=== PATIENT | female | born 1945 | race Caucasian/White ===

== ENCOUNTER 2017-04-25 11:35 | Outpatient (CLI) | payer MEDICARE, MEDICAID | END 2017-04-25 11:36 | disposition critical access hospital (66) | LOC: EMS 11:35 | PROVIDERS: ATTEND Surgery | DX: R10.9 Unspecified abdominal pain (principal) | CPT/HCPCS: A0425; A0427 ==

== ENCOUNTER 2017-04-25 11:54 | Observation (INO) | payer MEDICARE, MEDICAID ==
--- NOTE | 2017-04-25 12:21 | ED Physician Documentation ---
History of Present Illness - Stated complaint Stated Complaint: ABD PX - Chief complaint Chief Complaint: Abd Pain - History obtained from History obtained from: Patient, EMS - History of Present Illness Timing: Other (months) Pain level max: 3 Pain level now: 3 Improved by: nothing Worsened by: lying flat - Additonal information Additional information: Patient is a 71 year old female with diarrhea for the past 10 months. She now complains of abdominal swelling for the past 3-4 months. States felt short of breath today. Has a long history of etoh use, states now only drinks "1 drink per day". She has not seen a doctor for several years. [facility] was told she has diabetes approx 3-4 years ago, but "they never did anything". Smokes approx 1ppd. No fevers. No cough. No blood in the stool. no vomit. Review of Systems Ten Systems: 10 systems reviewed and negative Constitutional: denies: Fever, Chills Ears: denies: Ear pain Nose: denies: Rhinorrhea / runny nose, Congestion Throat: denies: Sore throat Cardiac: denies: Chest pain / pressure Respiratory: denies: Cough GI: reports: Diarrhea (10 times per day). denies: Nausea, Vomiting : denies: Dysuria Skin: denies: Rash Musculoskeletal: denies: Neck pain, Back pain Neurologic: denies: Headache PD PAST MEDICAL HISTORY - Past Medical History Past Medical History: No - Past Surgical History Past Surgical History: No - Allergies Allergies/Adverse Reactions: Allergies Allergy/AdvReac Type Severity Reaction Status Date / Time Sulfa (Sulfonamide Allergy Unknown Verified 04/25/17 12:05 Antibiotics) - Living Situation Living Situation: reports: With family Living Arrangement: reports: At home - Social History Does the pt smoke?: Yes Does the pt drink ETOH?: Yes - Family History Family history: reports: Non contributory PD ED PE NORMAL - Vitals Vital signs reviewed: Yes - General General: Alert and oriented X 3, No acute distress, Well developed/nourished - HEENT HEENT: PERRL, Moist mucous membranes - Neck Neck: Supple, no meningeal sign - Cardiac Cardiac: RRR, Strong equal pulses - Respiratory Respiratory: No respiratory distress, Other (bibasilar crackles) - Abdomen Abdomen: Soft, Non tender, Other (distended with fluid waves) - Derm Derm: Warm and dry, No rash - Extremities Extremities: Other (trace edema B) - Neuro Neuro: Alert and oriented X 3 - Psych Psych: Normal mood, Normal affect Results - Vitals Vitals: Vital Signs - 24 hr 04/25/17 04/25/17 04/25/17 12:01 13:24 14:18 Temperature 36.5 C Heart Rate 100 96 92 Respiratory 22 17 14 Rate Blood Pressure 127/62 117/48 L 117/42 L O2 Saturation 88 L 96 92 04/25/17 04/25/17 14:20 14:22 Temperature Heart Rate Respiratory Rate Blood Pressure O2 Saturation 88 L 82 L Oxygen O2 Source Room air - EKG (time done) 1208 Rate: Rate (enter#) (99) Rhythm: NSR [place]: Normal Intervals: Normal [place] QRS: Normal Ischemia: Non specific changes - Labs Labs: Laboratory Tests 04/25/17 04/25/17 04/25/17 12:17 12:17 12:17 WBC 13.7 H RBC 3.70 L Hgb 14.6 Hct 41.7 MCV 112.7 H MCH 39.6 H MCHC 35.1 RDW 14.4 Plt Count 162 MPV 7.9 Neut # 11.3 H Lymph # 1.3 L [place] # 0.8 Eos # 0.1 Baso # 0.2 H Absolute Nucleated RBC 0.00 Nucleated RBCs 0.0 Manual Slide Review Indicated WBC Morphology NORMAL APPEARANCE Platelet Estimate NORMAL (130-450,000) Platelet Morphology NORMAL APPEARANCE RBC Morph Micro Appear 3+ MACROCYTOSIS PT 19.8 H INR 1.8 H APTT 34.3 H Sodium 131 L Potassium 3.1 L Chloride 85 L Carbon Dioxide 34 H Anion Gap 12.0 BUN 21 H Creatinine 0.6 Estimated GFR (MDRD) 99 Glucose 142 H Calcium 8.8 Total Bilirubin 10.4 H AST 89 H ALT 30 Alkaline Phosphatase 114 Ammonia Total Protein 7.2 Albumin 3.1 L Globulin 4.1 Albumin/Globulin Ratio 0.8 L Lipase 25 Ethyl Alcohol < 5.0 04/25/17 12:32 WBC RBC Hgb Hct MCV MCH MCHC RDW Plt Count MPV Neut # Lymph # [place] # Eos # Baso # Absolute Nucleated RBC Nucleated RBCs Manual Slide Review WBC Morphology Platelet Estimate Platelet Morphology RBC Morph Micro Appear PT INR APTT Sodium Potassium Chloride Carbon Dioxide Anion Gap BUN Creatinine Estimated GFR (MDRD) Glucose Calcium Total Bilirubin AST ALT Alkaline Phosphatase Ammonia 39.0 H Total Protein Albumin Globulin Albumin/Globulin Ratio Lipase Ethyl Alcohol Procedures - Paracentesis Preparation: Consent obtained, Ultrasound guidance, Sterile prep and drape, Local anesthesia Location: RLQ Technique: Z-tract, Catheter over needle Fluid: Clear (yellow), Sent for cell count, Sent for gram stain, Sent for culture, Sent for glucose, Sent for protein, Sent for LDH, Volume - enter cc ( 2.5L), Sent for cytology Aftercare: No complications, Patient tolerated well, Dressing applied PD MEDICAL DECISION MAKING - ED course Complexity details: reviewed results, re-evaluated patient, considered differential, d/w patient, 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 Appears to have new onset ascites with likely alcoholic cirrhosis of the liver. Paracentesis was performed, 2-1/2 L drained. Tolerated well. Sent for laboratory analysis. She remained hypoxic despite drainage of the fluid. Dropping down to 82% on room air while lying in bed. Therefore was placed back on supplemental oxygen. She does have COPD and was given a nebulizer treatment. We will admit the patient for further care. Discussed the case with Dr. Gunderson who accepts. Departure - Departure Disposition: 66 [facility] DC/Xfer Clinical Impression: Hypoxia Ascites Qualifiers: Ascites type: due to alcoholic cirrhosis Qualified Code(s): K70.31 - Alcoholic cirrhosis of liver with ascites Liver cirrhosis Qualifiers: Hepatic cirrhosis type: alcoholic cirrhosis Ascites presence: with ascites Qualified Code(s): K70.31 - Alcoholic cirrhosis of liver with ascites COPD (chronic obstructive pulmonary disease) Qualifiers: COPD type: unspecified COPD Qualified Code(s): J44.9 - Chronic obstructive pulmonary disease, unspecified Condition: Stable
[2017-04-25 12:30] LABS: BASOPHILS # (AUTO) 0.2 10^3/uL (0.0-0.1); BASOPHILS % (AUTO) 1.2 %; EOSINOPHILS # (AUTO) 0.1 10^3/uL (0.0-0.7); EOSINOPHILS % (AUTO) 0.7 %; HCT - HEMATOCRIT 41.7 % (37.0-47.0); HGB - HEMOGLOBIN 14.6 g/dL (12.0-16.0); LYMPHOCYTES # (AUTO) 1.3 10^3/uL (1.5-3.5); LYMPHOCYTES % (AUTO) 9.5 %; MEAN CORPUSCULAR HEMOGLOBIN 39.6 pg (27.0-31.0); MEAN CORPUSCULAR HGB CONC 35.1 g/dL (32.0-36.0); MEAN CORPUSCULAR VOLUME 112.7 fL (81.0-99.0); MEAN PLATELET VOLUME 7.9 fL (7.9-10.8); MONOCYTES # (AUTO) 0.8 10^3/uL (0.0-1.0); MONOCYTES % (AUTO) 5.7 %; NEUTROPHILS # (AUTO) 11.3 10^3/uL (1.5-6.6); NEUTROPHILS % (AUTO) 82.9 %; RED CELL DISTRIBUTION WIDTH 14.4 % (12.0-15.0); UNCORRECTED WHITE BLOOD COUNT 13.7 x10^3/uL; WHITE BLOOD COUNT 13.7 x10^3/uL (4.8-10.8)
[2017-04-25 12:33] LABS: INR 1.8 (0.8-1.2); PT - PROTHROMBIN TIME 19.8 secs (9.9-12.6)
[2017-04-25 12:40] LABS: PARTIAL THROMBOPLASTIN TIME 34.3 secs (24.9-33.3)
[2017-04-25 12:46] LABS: ALBUMIN/GLOBULIN RATIO 0.8 (1.0-2.2); BILIRUBIN,TOTAL 10.4 mg/dL (0.2-1.0); BUN - BLOOD UREA NITROGEN 21 mg/dL (6-20); CALCIUM 8.8 mg/dL (8.5-10.3); CARBON DIOXIDE - CO2 34 mmol/L (21-32); CHLORIDE 85 mmol/L (101-111); CREATININE 0.6 mg/dL (0.4-1.0); GFR - MDRD 99 (>89); GLUCOSE 142 mg/dL (70-100); LIPASE 25 U/L (22-51); POTASSIUM 3.1 mmol/L (3.5-5.0); SODIUM 131 mmol/L (135-145); TOTAL PROTEIN 7.2 g/dL (6.7-8.2)
--- NOTE | 2017-04-25 13:35 | XRAY Preliminary Report ---
Exam: XR Chest 2 View PA/LAT IMPRESSION: 1. Lung volumes and heart size are within normal limits. 2. There are small bilateral pleural effusions. 3. No evidence of focal infiltrate. 4. No pneumothorax. [facility] SITE ID: [id number]
--- NOTE | 2017-04-25 13:37 | XRAY Report ---
EXAM: CHEST RADIOGRAPHY EXAM DATE: 04/25/2017 01:11 PM. CLINICAL HISTORY: Dyspnea. COMPARISON: None. TECHNIQUE: 2 views. FINDINGS: Lungs/Pleura: There are small bilateral pleural effusions. No evidence for infiltrate. No pneumothora x. Mediastinum: Heart size is within normal limits. Other: None. IMPRESSION: 1. Lung volumes and heart size are within normal limits. 2. There are small bilateral pleural effusions. 3. No evidence of focal infiltrate. 4. No pneumothorax. [facility] Referring Provider Line: [phone] SITE ID: [id number]
[2017-04-25 13:38] LABS: PLATELET ESTIMATE, MANUAL NORMAL (130-450,000) (NORMAL); PLATELET MORPHOLOGY NORMAL APPEARANCE (NORMAL)
[2017-04-25 13:39] LABS: WBC MORPHOLOGY (MULTIPLE) NORMAL APPEARANCE (NORMAL)
--- NOTE | 2017-04-25 13:50 | CT Report ---
EXAM: CT ABDOMEN AND PELVIS EXAM DATE: 04/25/2017 01:24 PM. CLINICAL HISTORY: Abdominal swelling, new ascites. COMPARISONS: None. TECHNIQUE: Routine helical CT imaging was performed through the abdomen and pelvis. IV contrast: 100 cc Isovue-300. Enteric contrast: No. Reconstructions: Coronal and sagittal. In accordance with CT protocol optimization, one or more of the following dose reduction techniques w ere utilized for this exam: automated exposure control, adjustment of mA and/or KV based on patient s ize, or use of iterative reconstructive technique. FINDINGS: Lung Bases: There are small bilateral pleural effusions. Liver: Cirrhotic liver. There is marked heterogeneity of hepatic attenuation without clear evidence o f focal mass. Gallbladder/Bile Ducts: The gallbladder is surgically absent. No significant bile duct dilatation. Spleen: There is mild splenomegaly. Pancreas: Normal. Adrenal Glands: Normal. Kidneys: There is left nephrolithiasis. No evidence of distal obstructing stone or hydronephrosis. Peritoneal Cavity/Bowel: There is moderate ascites. No dilated bowel is seen. No evidence of wall thi ckening. Possible mild small bowel edema related to the patient's liver disease. No enlarged mesenter ic or retroperitoneal lymph nodes. No evidence of intraperitoneal free air. No evidence of appendicit is. Pelvic Organs: Normal. The bladder and visualized pelvic organs are within normal limits. Vasculature: There are atheromatous calcifications of the aorta and iliac vessels. No acute vascular abnormalities are seen. Bones: No acute bony abnormalities are seen. Lumbar fusion hardware is in place. Other: None. IMPRESSION: 1. There is cirrhosis and sequela of portal hypertension. The liver demonstrates heterogeneous hypode nsity which may represent fatty infiltration. There is no clear evidence of focal hepatic mass. 2. There is moderate ascites. 3. There are small bilateral pleural effusions. 4. There is left nephrolithiasis. 5. No acute gastrointestinal tract abnormalities are seen. [facility] Referring Provider Line: [phone] SITE ID: [id number]
[2017-04-25] MEDS ORDERED: IOPAMIDOL-300 100 ML VIAL IVP ONE (14:19)
[2017-04-25] MEDS ORDERED: IPRATROPIUM/ALBUTEROL 3 ML NEB INH STA (14:36)
[2017-04-25] MEDS ORDERED: IPRATROPIUM/ALBUTEROL 3 ML NEB INH ONE (14:51)
[2017-04-25 14:58] LABS: CC,BF RBC 1018 /mm^3
[2017-04-25 16:13] LABS: LYMPHOCYTES %,BODY FLUID 26; MACROPHAGES %,BODY FLUID 14 %; MONOCYTES %,BODY FLUID 34 %; NEUTROPHILS %, BF 26 %
[2017-04-25 16:14] LABS: BF CLARITY CLEAR; BF COLOR YELLOW
[2017-04-25] MEDS ORDERED: SODIUM CHLORIDE 0.9% 500 ML IV ONE (16:41)
[2017-04-25] MEDS ORDERED: ONDANSETRON 4 MG/2 ML VIAL IVP STA (16:41)
[2017-04-25] MEDS ORDERED: ONDANSETRON 4 MG/2 ML VIAL ONE (16:48)
[2017-04-25] MEDS ORDERED: SODIUM CHLORIDE FLUSH 0.9% 10 ML SYRINGE IVP ONE (16:49)
--- NOTE | 2017-04-25 17:18 | HISTORY & PHYSICAL EXAMINATION ---
Chief Complaint - Chief Complaint Chief Complaint: shortness of breath, abdominal swelling x 3 months History of Present Illness - Admitted From Admitted From:: ER - History Obtained From Records Reviewed: yes History obtained from: patient and medical records - History of Present Illness HPI Comment/Other: Patient is a 71 year old female who presented to the ER with complaint of abdominal distention x 3 months, yellow skin, diarrhea x 10 months and no appetite for a week. Patient states she drinks vodka daily and smokes 3-4 cigarettes daily. She denies street drugs. She decided to come to the ER today when she continued to have abdominal pain and worsening distention. She knows she has liver failure but is comfortable doing the minimum for comfort. She agrees to be DNR and no invasive procedures necessary to prolong life. She states she watched her mother and sister of lung cancer and would prefer not to prolong the inevitable. She had a paracentesis in the ER and they removed 2.5 liters of fluids from the abdomen. She contributes the liver failure to her history of hepatitis C as a young adult. She is not and has 2 nieces in the area. She lives alone and is retired. She has pain to the abdomen 5/10 and is now better since they took off some of the fluids. She has not eaten today and states eating makes her stomach hurt more. She has not taken any medications for the pain and does not take any daily medications routinely. She states her symptoms today are now moderate to severe and made worse in severity with movement and walking. resting makes it better. She will be admitted overnight for potasium replacement, RT support and treatments. WA protocol and a sleep aid. Review of Systems - Constitutional Constitutional: reports: Fatigue, Weakness, Poor appetite, Weight gain - Respiratory Respiratory: reports: SOB at rest - Gastrointestinal Gastrointestinal: reports: Abdominal pain, Abdominal distention, Diarrhea, Change in bowel habits, Bloating - Neurological Neurological: reports: General weakness, Headache - Psychiatric Psychiatric: reports: Depression - Hematologic/Lymphatic Hematologic/Lymphatic: reports: Bruising History - Past Medical History Cardiovascular: reports: None Respiratory: reports: COPD, Emphysema, Shortness of breath Neuro: reports: Head injury Endocrine/Autoimmune: reports: None GI: reports: GERD, Chronic diarrhea, Hepatitis : reports: None HEENT: reports: None Psych: reports: Depression Musculoskeletal: reports: Osteoarthritis Derm: reports: None MRSA Hx?: No - Past Surgical History General: reports: Cholecystectomy Ortho: reports: ACL reconstruction, Spine surgery - Family & Social History Family History: Mother: , Alcoholism, Cancer, Father: , Cancer, Sister: , Cancer Living arrangement: At home Living Situation: Alone - Substance History Use: Uses substance without health or social issues: Tobacco, Alcohol Abuse: Recurrent use of substance despite neg consequences: Alcohol Abuse Issues: Intoxication, Sleep Disorder Dependence: Experiences withdrawal or developed tolerances: Tobacco, Alcohol Dependence Issues: Sleep Disorder Tobacco Details: Cigarettes - POLST Patient has POLST: No POLST Status: DNR Meds/Allgy - Home Medications Home Medications: Ambulatory Orders Medication Instructions Recorded Confirmed Albuterol Sulfate [Proventil Hfa 2 puffs INH Q4H PRN #1 inhaler 04/26/17 Inhaler] Furosemide [Lasix] 20 mg PO DAILY #30 tablet 04/26/17 Ipratropium/Albuterol [Duoneb] 3 ml INH RTQ4H PRN #30 neb 04/26/17 Lactulose [Generlac] 10 gm PO DAILY #30 ml 04/26/17 Ondansetron Odt [Zofran Odt] 4 mg TL Q6HR PRN #30 tablet 04/26/17 Potassium Chloride [K-Dur] 20 meq PO DAILY #30 tablet 04/26/17 Spironolactone 25 mg PO DAILY #30 tablet 04/26/17 - Allergies Allergies/Adverse Reactions: Allergies Allergy/AdvReac Type Severity Reaction Status Date / Time Sulfa (Sulfonamide Allergy Unknown Verified 04/25/17 12:05 Antibiotics) Exam - Vital Signs Reviewed Vital Signs: Yes Vital Signs: Vital Signs x48h Temp Pulse Resp BP Pulse Ox 04/25/17 16:39 99 15 93/59 L 94 04/25/17 16:12 36.9 C 90 22 102/49 L 91 L 04/25/17 15:14 90 17 102/49 L 94 04/25/17 15:10 94/50 L 04/25/17 15:06 91 15 85/53 L 97 04/25/17 14:40 91 15 04/25/17 14:22 82 L 04/25/17 14:20 88 L 04/25/17 14:18 92 14 117/42 L 92 04/25/17 13:24 96 17 117/48 L 96 04/25/17 12:01 36.5 C 100 22 127/62 88 L - Physical Exam General Appearance: positive: No acute distress, Alert Eyes Bilateral: positive: PERRL, Other (sclera icteric) ENT: positive: ENT inspection nml, Pharynx nml, No signs of dehydration Neck: positive: Nml inspection, Thyroid nml, No JVD, Trachea midline Respiratory: positive: Chest non-tender, No respiratory distress, Other ( diminished in bases) Cardiovascular: positive: No murmur, No gallop. negative: JVD present Peripheral Pulses: positive: 1+ Abdomen: positive: Tenderness, Hepatomegaly, Other (distention with ascites and fluids wave. jaundiced) Rectal: positive: Stool - heme NEG Back: positive: Nml inspection, CVA tenderness (R), CVA tenderness (L) Skin: positive: No rash, Warm, Dry, Other (jaundiced) Extremities: positive: Non-tender, Full ROM, Nml appearance, No pedal edema Neurologic/Psychiatric: positive: Oriented x3, CN's nml (2-12), Motor nml, Sensation nml, Weakness, Depressed mood/affect. negative: Slurred/abnml speech Conclusion/Plan - Problem List (1) Liver disease, chronic, with cirrhosis Conclusion/Plan: acute on chronic. patient had 2 liters taken off abdomen in the ER. continue with fluids restriction diet. avoid hepatic drugs. replace electrolytes and check magnesium level. meals with patient concern for liver failure and hepatoxicity. (2) Other dyspnea and respiratory abnormality Conclusion/Plan: acute with ascites from chronic alcohol abuse with dependence. respiratory therapy assist with supplemental oxygen for sats >92%. duoneb treatments as needed with RT (3) Alcohol abuse with other alcohol-induced disorder Conclusion/Plan: acute on chronic. patient is a daily drinker. CIWA protocol with ativan. plan to discharge tomorrow. counseling provided. ascites with liver cirrhosis. (4) Nicotine dependence, cigarettes, uncomplicated Conclusion/Plan: chronic, counseling provided and nicotine patch as needed - Lab Results Lab results reviewed: Yes Fish Bones: 04/26/17 05:30 04/26/17 05:30 Other Lab Results: Abnormal Lab Results 04/25/17 04/25/17 04/25/17 12:17 12:17 12:17 WBC 13.7 x10^3/uL H x10^3/uL (4.8-10.8) RBC 3.70 10^6/uL L 10^6/uL (4.20-5.40) MCV 112.7 fL H fL (81.0-99.0) MCH 39.6 pg H pg (27.0-31.0) Neut # 11.3 10^3/uL H 10^3/uL (1.5-6.6) Lymph # 1.3 10^3/uL L 10^3/uL (1.5-3.5) Baso # 0.2 10^3/uL H 10^3/uL (0.0-0.1) PT 19.8 secs H secs (9.9-12.6) INR 1.8 H (0.8-1.2) APTT 34.3 secs H secs (24.9-33.3) Sodium 131 mmol/L L mmol/L (135-145) Potassium 3.1 mmol/L L mmol/L (3.5-5.0) Chloride 85 mmol/L L mmol/L (101-111) Carbon Dioxide 34 mmol/L H mmol/L (21-32) BUN 21 mg/dL H mg/dL (6-20) Glucose 142 mg/dL H mg/dL (70-100) Total Bilirubin 10.4 mg/dL H mg/dL (0.2-1.0) AST 89 IU/L H IU/L (10-42) Ammonia Albumin 3.1 g/dL L g/dL (3.2-5.5) Albumin/Globulin Ratio 0.8 L (1.0-2.2) 04/25/17 12:32 WBC RBC MCV MCH Neut # Lymph # Baso # PT INR APTT Sodium Potassium Chloride Carbon Dioxide BUN Glucose Total Bilirubin AST Ammonia 39.0 umol/L H umol/L (7-35) Albumin Albumin/Globulin Ratio - Diagnostic Imaging Results Diagnostic Imaging Results: positive: See rad report - EKG Results EKG Interpreted Independently: No EKG Comparison: No prior EKG (patient to be admitted overnight states she does not want to stay any longer and go home in the morning, She will need RT support overnight with supplemental oxygen.) Issues/Core Measures - Anticipated LOS Anticipated Stay Length: Less than 2 midnights - Issues Hospital Issues and Management Plan: Patient is a 71 year old female who has history of daily alcohol abuse - DVT/VTE - Prophylaxis VTE/DVT Device ordered at admit?: Yes VTE/DVT Prophylaxis med ordered at admit?: No Not Ordered - Medical Reason: Contraindicated (liver cirrhosis)
[2017-04-25] MEDS ORDERED: IPRATROPIUM/ALBUTEROL 3 ML NEB INH SCH (17:38)
[2017-04-25] MEDS ORDERED: SODIUM CHLORIDE FLUSH 0.9% 10 ML SYRINGE IVP PRN (17:38)
[2017-04-25] MEDS ORDERED: ONDANSETRON ODT 4 MG TABLET TL PRN (17:38)
[2017-04-25] MEDS ORDERED: LORazepam 2 MG/ML SYRINGE IVP PRN (18:30)
[2017-04-25] MEDS ORDERED: ALPRAZolam 0.25 MG TABLET PO SCH (19:00)
[2017-04-25] MEDS ORDERED: SPIRONOLACTONE 25 MG TABLET PO SCH (19:00)
[2017-04-25] MEDS ORDERED: HYDROcod/ACETAM 5/325 MG TABLET PO PRN (19:08)
[2017-04-25] MEDS ORDERED: MAGNESIUM SULFATE 2 GRAM 50 ML IV SCH (19:08)
[2017-04-25] MEDS: PANTOPRAZOLE 40 MG TABLET PO SCH ×2 (19:20→19:21)
[2017-04-25] MEDS: POTASSIUM CHLORIDE 20 MEQ/15 ML UDC PO SCH (19:20)
[2017-04-25] MEDS: SODIUM CHLORIDE FLUSH 0.9% 10 ML SYRINGE IVP SCH (20:28)
[2017-04-25] MEDS ORDERED: IPRATROPIUM/ALBUTEROL 3 ML NEB INH PRN (21:41)
[2017-04-25 22:21] LABS: PH,URINE 6.5 PH (5.0-7.5); UA CHARGE (STRIP ONLY) YES; UR CULTURE IF IND NOT INDICATED
[2017-04-25 22:29] LABS: BILIRUBIN,URINE NEGATIVE (NEGATIVE)
[2017-04-26] MEDS: SODIUM CHLORIDE FLUSH 0.9% 10 ML SYRINGE IVP SCH ×2 (05:21→14:12)
[2017-04-26 06:21] LABS: BASOPHILS # (AUTO) 0.1 10^3/uL (0.0-0.1); BASOPHILS % (AUTO) 0.4 %; EOSINOPHILS # (AUTO) 0.2 10^3/uL (0.0-0.7); EOSINOPHILS % (AUTO) 1.3 %; HCT - HEMATOCRIT 38.7 % (37.0-47.0); HGB - HEMOGLOBIN 13.4 g/dL (12.0-16.0); LYMPHOCYTES # (AUTO) 2.8 10^3/uL (1.5-3.5); LYMPHOCYTES % (AUTO) 21.3 %; MEAN CORPUSCULAR HEMOGLOBIN 39.9 pg (27.0-31.0); MEAN CORPUSCULAR HGB CONC 34.5 g/dL (32.0-36.0); MEAN PLATELET VOLUME 8.2 fL (7.9-10.8); MONOCYTES % (AUTO) 7.8 %; NEUTROPHILS % (AUTO) 69.2 %; RED BLOOD COUNT 3.35 10^6/uL (4.20-5.40); RED CELL DISTRIBUTION WIDTH 14.1 % (12.0-15.0)
[2017-04-26 06:23] LABS: ALBUMIN/GLOBULIN RATIO 0.9 (1.0-2.2); BILIRUBIN,TOTAL 9.1 mg/dL (0.2-1.0); CALCIUM 8.3 mg/dL (8.5-10.3); CREATININE 0.6 mg/dL (0.4-1.0); POTASSIUM 3.3 mmol/L (3.5-5.0); TOTAL PROTEIN 5.8 g/dL (6.7-8.2)
[2017-04-26 06:24] LABS: MEAN CORPUSCULAR VOLUME 115.4 fL (81.0-99.0)
[2017-04-26] MEDS ORDERED: POTASSIUM CHLORIDE 20 MEQ/15 ML UDC PO SCH (08:00)
[2017-04-26 08:04] VITALS: BP 98/53
[2017-04-26] MEDS ORDERED: CYANOCOBALAMIN 1,000 MCG/ML VIAL IM ONE (08:15)
[2017-04-26] MEDS ORDERED: FUROSEMIDE 40 MG/4 ML VIAL IVP SCH (08:15)
[2017-04-26] MEDS ORDERED: POLYETHYLENE GLYCOL 3350 17 GM PACKET PO SCH (09:00)
[2017-04-26] MEDS ORDERED: SPIRONOLACTONE 25 MG TABLET PO SCH (09:00)
--- NOTE | 2017-04-26 10:16 | Discharge Plan ---
Discharge Plan Disposition: Home, Self Care Condition: Fair Prescriptions: Ondansetron Odt [Zofran Odt] 4 mg TL Q6HR PRN #30 tablet PRN Reason: Nausea / Vomiting Ipratropium/Albuterol [Duoneb] 3 ml INH RTQ4H PRN #30 neb PRN Reason: Wheezing Lactulose [Generlac] 10 gm PO DAILY #30 ml Potassium Chloride [K-Dur] 20 meq PO DAILY #30 tablet Furosemide [Lasix] 20 mg PO DAILY #30 tablet Albuterol Sulfate [Proventil Hfa Inhaler] 2 puffs INH Q4H PRN #1 inhaler PRN Reason: Shortness Of Air/Wheezing Spironolactone 25 mg PO DAILY #30 tablet Diet: Low Sodium (low salt and restrict fluids) Activity Restrictions: No Restrictions Shower Restrictions: No Driving Restrictions: No Assistance Devices: Walker, Cane Weight Bearing: Full Weight Instruction Topics: Alcoholism, Alcoholism Impact, Disease Chronic Lung Quit Smoking Additional Instructions or Follow Up instructions: 1. continue to take your medications as prescribed. You have been given Lasix and spirolactone for fluids retention. 2. Eat a low sodium and low fat diet. Avoid canned food or prepackaged meals since these can add to the fluid retention 3. Get up and move daily since this will help with fluid retention. 4. You need to stop drinking since this can worsen your electrolytes and make you retain fluids and worsen the shortness of breath you are experiencing 5. You need to avoid soda and limit caffeine. water is best to drink during the day 6. return to the ER if your symptoms worsen or you have chest pain or cant breathe 7. You need to followup with [facility] for your end stage liver disease for further planning and care. No Smoking: If you smoke, Please STOP! Call for help.
[2017-04-26] MEDS: POTASSIUM CHLORIDE 20 MEQ/15 ML UDC PO SCH (10:27)
[2017-04-26] MEDS ORDERED: CYANOCOBALAMIN 1,000 MCG/ML VIAL IM SCH (11:00)
--- NOTE | 2017-04-26 13:00 | DISCHARGE SUMMARY ---
"Discharge Summary Admit Date: 04/25/17 Discharge Date: 04/26/17 Discharging Provider: Diane Carr APRN Primary Care Provider: none Code Status: Do Not Attempt Resuscitation Condition at Discharge: Fair Discharge Disposition: 01 Home, Self Care Discharge Facility Name: home - DIAGNOSES Admission Diagnoses: 1. acute generalized abdominal pain secondary to ascites with end stage liver failure 2. Chronic alcohol abuse with dependence 3. Hypomagnesium 4. Hypokalemia 5. Acute diarrhea 6. Elevated ammonia level with alcohol abuse Discharge Diagnoses with Status of Each Condition: 1. Acute dyspnea secondary to ascites with end stage liver failure 2. Chronic alcohol usage, daily with dependence 3. Hypomagnesium, acute on chronic with alcohol abuse with dependence 4. Hypokalemia and other electrolyte imbalances 5. Acute abdominal pain with ascites secondary to alcohol usage with dependence with end stage liver failure 6. nicotine dependence, cigarettes, uncomplicated 7. Acute diarrhea 6. Elevated ammonia level with alcohol abuse - HPI History of Present Illness: Patient is a 71 year old female who presented to the ER with complaint of abdominal distention x 3 months, yellow skin, diarrhea x 10 months and no appetite for a week. Patient states she drinks vodka daily and smokes 3-4 cigarettes daily. She denies street drugs. She decided to come to the ER today when she continued to have abdominal pain and worsening distention. She knows she has liver failure but is comfortable doing the minimum for comfort. She agrees to be DNR and no invasive procedures necessary to prolong life. She states she watched her mother and sister of lung cancer and would prefer not to prolong the inevitable. She had a paracentesis in the ER and they removed 2.5 liters of fluids from the abdomen. She contributes the liver failure to her history of hepatitis C as a young adult. She is not and has 2 nieces in the area. She lives alone and is retired. She has pain to the abdomen 5/10 and is now better since they took off some of the fluids. She has not eaten today and states eating makes her stomach hurt more. She has not taken any medications for the pain and does not take any daily medications routinely. She states her symptoms today are now moderate to severe and made worse in severity with movement and walking. resting makes it better. She will be admitted overnight for potasium replacement, RT support and treatments. CIWA protocol and a sleep aid. - CONSULTS | PROCEDURES Consultations: Yajaira Ramirez with pallative care Procedures: respiratory therapy - HOSPITAL COURSE Hospital Course: Patient is a 71 year old female who came to the ER with complaint of abdominal pain and shortness of breath. She had not seen a doctor in 5 years. She is a daily alcohol drinker and had significant ascites. The ER provider performed a paracentesis and took off 2.5 liters of fluid from the abdomen. She was admitted for shortness of breath and abdominal pain. Patient stated at admission she had no intentions of staying any longer than 1 day and only wanted treatment for her SOB and abdominal pain. She was given lasix IV to help take off the fluid in her abdomen and given [place] for the pain. She was given a low sodium diet. She had a low magnesium that was replaced with magnesium sulfate IV and improved to 2.2 before discharge. She was given a banana bag for alcoholism and for the electrolyte imbalances including low potassium and hyponatremia. She had significant liver disease probably from both alcoholism and history of hepatitis when younger. She was encouraged to ambulate with assist from nursing. She was given thiamine and folate. She was started on CIWA protocol and ativan for potential withdrawal. She was given Xanax for anxiety and help with sleep. Her electrolytes were checked with daily lab draws. She did not receive any IVF since patient presented with ascites. She did receive magnesium in IVF. She needed respiratory therapy treatments and supplemental oxygen when ambulating. She was short of breath prior to going home so a walking oxygen study completed. Patient was found to need home oxygen. Since patient was hypoxic at rest, on room air was oxygen sats of 86%. At rest with oxygen at 2 liters her sats were 88% and at 3 liters her sats were 92%. With exertion, on 3 liters her sats were 86% on 5 liters of oxygen with exertion sats were 89%. On 6 liters her sats improved to 90% with exertion. I am ordering home oxygen, 3 liters at rest and 6 liters via nasal cannula with exertion. Patient was discharged home with consult for pallative care with Yajaira Ramirez. Since patient had no primary care provider, she was given information to see one. Patient was given prescriptions for Neb treatments, magnesium, MVI lasix and spirolactone, lactulose. She wanted to go home instead of seeking further treatment for liver failure with electrolyte imbalances and ascites. - ALLERGIES Allergies/Adverse Reactions: Allergies Allergy/AdvReac Type Severity Reaction Status Date / Time Sulfa (Sulfonamide Allergy Unknown Verified 04/25/17 12:05 Antibiotics) - MEDICATIONS Home Medications: Ambulatory Orders Medication Instructions Recorded Confirmed Albuterol Sulfate [Proventil Hfa 2 puffs INH Q4H PRN #1 inhaler 04/26/17 Inhaler] Furosemide [Lasix] 20 mg PO DAILY #30 tablet 04/26/17 Ipratropium/Albuterol [Duoneb] 3 ml INH RTQ4H PRN #30 neb 04/26/17 Lactulose [Generlac] 10 gm PO DAILY #30 ml 04/26/17 Ondansetron Odt [Zofran Odt] 4 mg TL Q6HR PRN #30 tablet 04/26/17 Potassium Chloride [K-Dur] 20 meq PO DAILY #30 tablet 04/26/17 Spironolactone 25 mg PO DAILY #30 tablet 04/26/17 - PHYSICAL EXAM AT DISCHARGE General Appearance: positive: No acute distress, Alert Eyes Bilateral: positive: PERRL, Other (yellowing of sclera) ENT: positive: ENT inspection nml, Pharynx nml, No signs of dehydration Neck: positive: Nml inspection, Thyroid nml, No JVD, Trachea midline Respiratory: positive: Chest non-tender, No respiratory distress, Breath sounds nml Cardiovascular: positive: Regular rate & rhythm, No murmur, No gallop Peripheral Pulses: positive: 2+ Abdomen: positive: Tenderness, Hepatomegaly (distention with ascites and fluid wave), Other. negative: Guarding, Rebound Back: positive: Nml inspection. negative: CVA tenderness (R), CVA tenderness (L ) Skin: positive: Warm, Dry, Other (jaundice). negative: Skin rash Extremities: positive: Full ROM, Nml appearance. negative: Calf tenderness Neurologic/Psychiatric: positive: Oriented x3, CN's nml (2-12), Motor nml, Sensation nml, Mood/affect nml, Weakness - LABS Result Diagrams: 04/26/17 05:30 04/26/17 05:30 Other Lab Results: Abnormal Lab Results 04/25/17 04/25/17 04/25/17 12:17 12:17 12:17 WBC 13.7 x10^3/uL H x10^3/uL (4.8-10.8) RBC 3.70 10^6/uL L 10^6/uL (4.20-5.40) MCV 112.7 fL H fL (81.0-99.0) MCH 39.6 pg H pg (27.0-31.0) Neut # 11.3 10^3/uL H 10^3/uL (1.5-6.6) Lymph # 1.3 10^3/uL L 10^3/uL (1.5-3.5) Baso # 0.2 10^3/uL H 10^3/uL (0.0-0.1) PT 19.8 secs H secs (9.9-12.6) INR 1.8 H (0.8-1.2) APTT 34.3 secs H secs (24.9-33.3) Sodium 131 mmol/L L mmol/L (135-145) Potassium 3.1 mmol/L L mmol/L (3.5-5.0) Chloride 85 mmol/L L mmol/L (101-111) Carbon Dioxide 34 mmol/L H mmol/L (21-32) BUN 21 mg/dL H mg/dL (6-20) Glucose 142 mg/dL H mg/dL (70-100) Calcium Magnesium Total Bilirubin 10.4 mg/dL H mg/dL (0.2-1.0) AST 89 IU/L H IU/L (10-42) Ammonia Total Protein Albumin 3.1 g/dL L g/dL (3.2-5.5) Albumin/Globulin Ratio 0.8 L (1.0-2.2) Urine Urobilinogen 04/25/17 04/25/17 04/25/17 12:32 13:47 22:00 WBC RBC MCV MCH Neut # Lymph # Baso # PT INR APTT Sodium Potassium Chloride Carbon Dioxide BUN Glucose Calcium Magnesium 1.6 mg/dL L mg/dL (1.7-2.8) Total Bilirubin AST Ammonia 39.0 umol/L H umol/L (7-35) Total Protein Albumin Albumin/Globulin Ratio Urine Urobilinogen 4 E.U./dL H E.U./dL (NORMAL) 04/26/17 04/26/17 05:30 05:30 WBC 13.0 x10^3/uL H x10^3/uL (4.8-10.8) RBC 3.35 10^6/uL L 10^6/uL (4.20-5.40) MCV 115.4 fL H fL (81.0-99.0) MCH 39.9 pg H pg (27.0-31.0) Neut # 9.0 10^3/uL H 10^3/uL (1.5-6.6) Lymph # Baso # PT INR APTT Sodium 131 mmol/L L mmol/L (135-145) Potassium 3.3 mmol/L L mmol/L (3.5-5.0) Chloride 88 mmol/L L mmol/L (101-111) Carbon Dioxide 35 mmol/L H mmol/L (21-32) BUN 22 mg/dL H mg/dL (6-20) Glucose Calcium 8.3 mg/dL L mg/dL (8.5-10.3) Magnesium Total Bilirubin 9.1 mg/dL H mg/dL (0.2-1.0) AST 69 IU/L H IU/L (10-42) Ammonia Total Protein 5.8 g/dL L g/dL (6.7-8.2) Albumin 2.7 g/dL L g/dL (3.2-5.5) Albumin/Globulin Ratio 0.9 L (1.0-2.2) Urine Urobilinogen - FOLLOW UP Follow Up: Patient needs to followup with primary care provider within the first week of discharge. information for primary care providers were provided to patient - TIME SPENT Time Spent in Discharge (Minutes): 45 (for education planning and assessment)"
[2017-04-27 15:40] LABS: TEST RESULT REPORT (())
[2017-04-27 18:41] LABS: TEST RESULT REPORT (())
[2017-04-27 18:50] LABS: TEST RESULT REPORT (())
[2017-04-27 21:50] LABS: TEST RESULT REPORT (())
== END 2017-04-26 14:41 | disposition home or self-care (01) ==
LOC: ED 11:54 → OBS 17:13
PROVIDERS: ADMIT Nurse Practitioner; ATTEND Nurse Practitioner
DX: K72.00 Acute and subacute hepatic failure without coma (principal); K72.10 Chronic hepatic failure without coma; K70.31 Alcoholic cirrhosis of liver with ascites; F10.282 Alcohol dependence with alcohol-induced sleep disorder; E83.42 Hypomagnesemia; E87.6 Hypokalemia; F17.210 Nicotine dependence, cigarettes, uncomplicated; K52.9 Noninfective gastroenteritis and colitis, unspecified; J44.9 Chronic obstructive pulmonary disease, unspecified; R09.02 Hypoxemia; Z66 Do not resuscitate; Z86.19 Personal history of other infectious and parasitic diseases; E87.1 Hypo-osmolality and hyponatremia; K21.9 Gastro-esophageal reflux disease without esophagitis; F41.9 Anxiety disorder, unspecified; Z90.49 Acquired absence of other specified parts of digestive tract; Z71.6 Tobacco abuse counseling
CPT/HCPCS: 36415; 49082; 51701; 71020; 74177; 80053; 81003; 81599; 82140; 83690; 83735; 85025; 85610; 85730; 87070; 87205; 88108; 88305; 89051; 93005; 94640; 96361; 96365; 96366; 96372; 96375; 99284; 99285; A9270; G0378; G0480; J7620; Q9967; 80320; 81001; 82945; 83615; 84157; 87086; 96374

== ENCOUNTER 2017-05-04 16:06 | Outpatient (CLI) | payer MEDICARE, MEDICAID | END 2017-05-04 16:07 | disposition critical access hospital (66) | LOC: EMS 16:06 | PROVIDERS: ATTEND Surgery | DX: R10.9 Unspecified abdominal pain (principal) | CPT/HCPCS: A0425; A0429 ==

== ENCOUNTER 2017-05-04 16:31 | Emergency (ER) | payer MEDICARE, MEDICAID ==
--- NOTE | 2017-05-04 19:03 | ED Physician Documentation ---
PD HPI ABD PAIN - Stated complaint Stated Complaint: ABD PX - Chief complaint Chief Complaint: Abd Pain - History obtained from History obtained from: Patient - History of Present Illness Timing - onset: Other (she has been having ongoing abd pain with the ascites. Improved with paracentesis and meds recently. However discharged from [facility] withotu Rx for pain meds and given referral to Palliative but not able to get appt yet, and is trying to get appt with local PMD.) Timing - details: Gradual onset, Waxing and waning Quality: Cramping, Aching, Fullness/distended Location: All over / everywhere Improved by: Laying still Worsened by: Moving, Breathing, Palpation Associated symptoms: Nausea. No: Fever, Constipation, Melena Recently seen: Emergency Dept, Admitted Review of Systems Ten Systems: 10 systems reviewed and negative Constitutional: denies: Fever, Chills Nose: denies: Rhinorrhea / runny nose, Congestion Throat: denies: Sore throat Cardiac: denies: Chest pain / pressure, Palpitations Respiratory: reports: Dyspnea (when lying flatter). denies: Cough, Wheezing GI: reports: Abdominal Pain, Nausea. denies: Vomiting, Diarrhea : denies: Dysuria, Frequency Neurologic: reports: Generalized weakness. denies: Focal weakness, Numbness, Near syncope Psychiatric: reports: Depressed. denies: Suicidal PD PAST MEDICAL HISTORY - Past Medical History Past Medical History: Yes Cardiovascular: None Respiratory: COPD, Emphysema, Shortness of breath Neuro: Head injury Endocrine/Autoimmune: None GI: GERD, Chronic diarrhea, Hepatitis : None HEENT: None Psych: Depression Musculoskeletal: Osteoarthritis Derm: None - Past Surgical History Past Surgical History: No General: Cholecystectomy Ortho: ACL reconstruction, Spine surgery - Present Medications Home Medications: Ambulatory Orders Medication Instructions Recorded Confirmed Albuterol Sulfate [Proventil Hfa 2 puffs INH Q4H PRN #1 inhaler 04/26/17 Inhaler] Furosemide [Lasix] 20 mg PO DAILY #30 tablet 04/26/17 Ipratropium/Albuterol [Duoneb] 3 ml INH RTQ4H PRN #30 neb 04/26/17 Lactulose [Generlac] 10 gm PO DAILY #30 ml 04/26/17 Ondansetron Odt [Zofran Odt] 4 mg TL Q6HR PRN #30 tablet 04/26/17 Potassium Chloride [K-Dur] 20 meq PO DAILY #30 tablet 04/26/17 Spironolactone 25 mg PO DAILY #30 tablet 04/26/17 Morphine Sulfate 15 mg PO Q8H PRN #30 tablet 05/04/17 Ondansetron HCl [Zofran] 4 mg PO Q6H PRN #20 tablet 05/04/17 - Allergies Allergies/Adverse Reactions: Allergies Allergy/AdvReac Type Severity Reaction Status Date / Time Sulfa (Sulfonamide Allergy Unknown Verified 04/25/17 12:05 Antibiotics) - Social History Does the pt smoke?: Yes Smoking Status: Current every day smoker Does the pt drink ETOH?: Yes Does the pt have substance abuse?: No - Immunizations Immunizations are current?: No - POLST Patient has POLST: No POLST Status: DNR PD ED PE NORMAL - Vitals Vital signs reviewed: Yes - General General: Alert and oriented X 3, Well developed/nourished, Other (jaundice and appears uncomfortable. ) - HEENT HEENT: PERRL (icteric), Pharynx benign - Neck Neck: Supple, no meningeal sign, No adenopathy - Cardiac Cardiac: RRR, No murmur - Respiratory Respiratory: Clear bilaterally - Abdomen Abdomen: Other (distended abdomen but not tense. Bruise right lower in area of recent paracentesis. No signs of infection there. ) - Female Female : Deferred - Rectal Rectal: Deferred - Back Back: No CVA TTP - Derm Derm: Normal color, Warm and dry - Extremities Extremities: No edema, No calf tenderness / cord - Neuro Neuro: Alert and oriented X 3, No motor deficit, Normal speech - Psych Psych: No: Normal mood (depressed) Results - Vitals Vitals: Vital Signs - 24 hr 05/04/17 05/04/17 05/04/17 16:32 17:47 18:45 Temperature 36.5 C 36.0 C L Heart Rate 87 83 83 Respiratory 16 14 16 Rate Blood Pressure 108/44 L 111/44 L 115/63 O2 Saturation 88 L 98 95 05/04/17 05/04/17 19:57 21:01 Temperature 36.9 C 36.0 C L Heart Rate 81 77 Respiratory 15 16 Rate Blood Pressure 104/45 L 102/60 O2 Saturation 94 92 Oxygen O2 Source Nasal cannula - Labs Labs: Laboratory Tests 05/04/17 05/04/17 05/04/17 19:24 19:24 19:40 WBC 17.7 H RBC 3.43 L Hgb 13.4 Hct 39.0 MCV 113.8 H MCH 39.1 H MCHC 34.3 RDW 14.7 Plt Count 182 MPV 8.0 Neut # 14.0 H Lymph # 2.2 [place] # 1.3 H Eos # 0.1 Baso # 0.1 Absolute Nucleated RBC 0.00 Nucleated RBCs 0.0 Manual Slide Review Indicated Platelet Estimate NORMAL (130-450,000) Platelet Morphology NORMAL APPEARANCE RBC Morph Micro Appear 2+ MACROCYTOSIS Sodium 132 L Potassium 4.2 Chloride 86 L Carbon Dioxide 34 H Anion Gap 12.0 BUN 46 H Creatinine 1.0 Estimated GFR (MDRD) 55 L Glucose 106 H Calcium 9.0 Total Bilirubin 12.2 H AST 129 H ALT 47 Alkaline Phosphatase 95 Ammonia 22.6 Total Protein 6.8 Albumin 2.9 L Globulin 3.9 Albumin/Globulin Ratio 0.7 L Lipase 26 PD MEDICAL DECISION MAKING - ED course Complexity details: reviewed results, re-evaluated patient (pain improved and she feels better with meds. ), considered differential (offered paracentesis for symptoms but patient deferred for now as not feeling too tight and pain improved with meds. ), d/w patient, d/w recruiting consultant (Talked with Hospice nurse senior health consultant, who will follow up on Consult tomorrow. we will fax chart to , but presume they have [employer] access. ) Departure - Departure Disposition: 01 Home, Self Care Clinical Impression: Liver disease, chronic, with cirrhosis Ascites Qualifiers: Ascites type: due to alcoholic cirrhosis Qualified Code(s): K70.31 - Alcoholic cirrhosis of liver with ascites Abdominal pain Qualifiers: Abdominal location: generalized Qualified Code(s): R10.84 - Generalized abdominal pain Condition: Stable Record reviewed to determine appropriate education?: Yes Instructions: ED Cirrhosis Liver Prescriptions: Morphine Sulfate 15 mg PO Q8H PRN #30 tablet PRN Reason: Pain Ondansetron HCl [Zofran] 4 mg PO Q6H PRN #20 tablet PRN Reason: Nausea / Vomiting Comments: Continue your current medications. Add morphine tablets as needed for pain every 8 hours. Ondansetron if needed for nausea. I did talk with hospice on- call just now and they will contact you in the next 1-2 days. Hopefully tomorrow. Return if worsening symptoms. Discharge Date/Time: 05/04/17 21:52
[2017-05-04] MEDS ORDERED: HYDROmorphone 1 MG/ML CARPUJECT ONE (19:36)
[2017-05-04 19:37] LABS: BASOPHILS # (AUTO) 0.1 10^3/uL (0.0-0.1); BASOPHILS % (AUTO) 0.6 %; EOSINOPHILS # (AUTO) 0.1 10^3/uL (0.0-0.7); EOSINOPHILS % (AUTO) 0.7 %; HGB - HEMOGLOBIN 13.4 g/dL (12.0-16.0); LYMPHOCYTES # (AUTO) 2.2 10^3/uL (1.5-3.5); LYMPHOCYTES % (AUTO) 12.5 %; MEAN CORPUSCULAR HEMOGLOBIN 39.1 pg (27.0-31.0); MEAN CORPUSCULAR HGB CONC 34.3 g/dL (32.0-36.0); MEAN CORPUSCULAR VOLUME 113.8 fL (81.0-99.0); MONOCYTES # (AUTO) 1.3 10^3/uL (0.0-1.0); MONOCYTES % (AUTO) 7.1 %; NEUTROPHILS % (AUTO) 79.1 %; RED BLOOD COUNT 3.43 10^6/uL (4.20-5.40); RED CELL DISTRIBUTION WIDTH 14.7 % (12.0-15.0); UNCORRECTED WHITE BLOOD COUNT 17.7 x10^3/uL; WHITE BLOOD COUNT 17.7 x10^3/uL (4.8-10.8)
[2017-05-04] MEDS ORDERED: ONDANSETRON 4 MG/2 ML VIAL ONE (19:37)
[2017-05-04] MEDS: ONDANSETRON 4 MG/2 ML VIAL IVP STA (19:42)
[2017-05-04] MEDS: HYDROmorphone 1 MG/ML CARPUJECT IVP STA (19:42)
[2017-05-04] MEDS: SODIUM CHLORIDE 0.9% 1,000 ML IV ONE (19:42)
[2017-05-04 19:48] LABS: ALBUMIN/GLOBULIN RATIO 0.7 (1.0-2.2); BILIRUBIN,TOTAL 12.2 mg/dL (0.2-1.0); POTASSIUM 4.2 mmol/L (3.5-5.0); TOTAL PROTEIN 6.8 g/dL (6.7-8.2)
[2017-05-04 19:53] LABS: PLATELET ESTIMATE, MANUAL NORMAL (130-450,000) (NORMAL); PLATELET MORPHOLOGY NORMAL APPEARANCE (NORMAL)
[2017-05-04 21:02] VITALS: BP 102/60
[2017-05-04] MEDS: oxyCODONE 5 MG TABLET PO STA (21:35)
[2017-05-04] MEDS ORDERED: oxyCODONE/ACET 5/325 Prepack 4 PO ONE (21:36)
[2017-05-04] MEDS ORDERED: oxyCODONE 5 MG TABLET ONE (21:36)
[2017-05-04] MEDS ORDERED: ONDANSETRON ODT 4 MG Prepack 2 TL ONE (21:36)
[2017-05-04] MEDS: oxyCODONE/ACET 5/325 Prepack 4 PO STA (21:46)
[2017-05-04] MEDS: ONDANSETRON ODT 4 MG Prepack 2 TL PRN (21:47)
== END 2017-05-04 21:52 | disposition home or self-care (01) ==
LOC: EDUNIT# → ED 16:31
DX: K70.31 Alcoholic cirrhosis of liver with ascites (principal); J44.9 Chronic obstructive pulmonary disease, unspecified; K75.9 Inflammatory liver disease, unspecified; M19.90 Unspecified osteoarthritis, unspecified site; F17.200 Nicotine dependence, unspecified, uncomplicated
CPT/HCPCS: 36415; 80053; 82140; 83690; 85025; 96374; 96375; 99283; 99284; A9270; J1170